=== PATIENT | female | born 1955 | race Caucasian/White ===

== ENCOUNTER → 2024-08-13 12:00 | Outpatient (CLI) | payer MEDICARE, SELFPAY ==
--- NOTE | 2024-08-13 12:09 | EKG_ITS ---
[address] [address] [address], [place] [address] Test Date: 2024-08-13 Pat Name: Terrie De Paz Department: Room: Gender: Female [employer] Instructor: ANAYA : 1955 Requested By: Order Number: [id number] Reading MD: Vasquez Manriquez Measurements Intervals Anthony Rate: 72 P: 9 LA: 134 QRS: 42 QRSD: 84 T: 33 QT: 396 QTc: 433 Interpretive Statements Normal sinus rhythm Electronically Signed On 08-14-2024 19:51:24 PDT by Vasquez Manriquez
[2024-08-13 13:15] LABS: Add Manual Diff / Slide Review NO; Basophils Absolute Auto 100 /uL (0-100); Basophils Percent Auto 0.7 % (0-2); Eosinophils Absolute Auto 300 /uL (0-450); Eosinophils Percent Auto 3.1 % (2-4); Hematocrit 39.3 % (36-46); Hemoglobin 13.7 g/dL (12.0-16.0); Lymphocytes Absolute Auto 2500 /uL (1100-4500); Lymphocytes Percent Auto 28.5 % (25-40); Mean Corpuscular HGB Conc 34.7 % (30-36); Mean Corpuscular Hemoglobin 31.4 PG (26-34); Mean Corpuscular Volume 90.5 fL (80-100); Monocytes Absolute Auto 800 /uL (0-900); Monocytes Percent Auto 8.7 % (3-14); Neutrophils Absolute Auto 5200 /uL (1500-7000); Platelet Count 326 X10^3/uL (150-400); Red Blood Cell Count 4.34 X10^6/uL (4.0-5.2); Red Cell Distribution Width 13.1 % (11.6-14.8); White Blood Cell Count 8.8 X10^3/uL (4.5-11.0)
[2024-08-13 14:17] LABS: Albumin 4.3 g/dL (3.5-5.0); BUN Creatinine Ratio 10.2 (6-22); Blood Urea Nitrogen 5 mg/dL (7-17); Carbon Dioxide 27 mmol/L (22-32); Chloride 98 mmol/L (98-107); Estimated Glomerular Filt Rate > 60 mL/min (>60); Glucose 96 mg/dL (80-110); HEMOLYSIS < 15 (0-50); Potassium 4.1 mmol/L (3.4-5.1); Sodium 134 mmol/L (137-145)
[2024-08-13 14:25] LABS: Prealbumin 22.5 mg/dL (17.6-36.0)
[2024-08-13 17:08] LABS: Vitamin D 25 Hydroxy (D3) 70.3 ng/mL (30.0-100.0)
== END ==
PROVIDERS: Referring Provider Orthopaedic Surgery Adult Reconstructive Orthopaedic Surgery; Visit Provider Orthopaedic Surgery Adult Reconstructive Orthopaedic Surgery
DX: Z01.818 Encounter for other preprocedural examination (principal); R73.9 Hyperglycemia, unspecified; E55.9 Vitamin D deficiency, unspecified; R77.0 Abnormality of albumin; Z01.812 Encounter for preprocedural laboratory examination
CPT/HCPCS: 36415; 80048; 82040; 82306; 83036; 84134; 85025; 93005

== ENCOUNTER 2024-09-03 11:15 | Inpatient (IN) | payer MEDICARE, SELFPAY ==
[2024-09-01 11:38] VITALS: BMI 21.2
[2024-09-03] VITALS (11 sets, daily range): BP systolic 90–121; BP diastolic 42–73; PULSE 66–75; RESP 12–18; TEMP 36.3–36.9; O2SAT 92–99; BMI 21.0
--- NOTE | 2024-09-03 06:00 | DI.RAD.S_ITS ---
PROCEDURE: XR KNEE RT 1TO2V INDICATIONS: post-op TECHNIQUE: 3 views of the knee were acquired. COMPARISON: [facility] EarlyEstevan Bruno, MAGDALENE, XR KNEE 4+ VIEWS RIGHT, 07/21/2024, 9:07. FINDINGS: Bones: Right knee arthroplasty revision changes and placement of medication beads. Soft tissues: Postsurgical changes of the soft tissues. IMPRESSION: Revision of the right knee arthroplasty and placement of medication beads. Postsurgical soft tissue changes. Dictated by: Cricket Bee M.D. on 09/03/2024 at 18:48 Approved by: Cricket Bee M.D. on 09/03/2024 at 18:49
[2024-09-03] MEDS: LACTATED RINGERS 1,000 ML 42 ML IV ×3 (12:36→17:45)
[2024-09-03] MEDS: ACETAMINOPHEN 325 MG TABLET 975 MG PO (12:41)
[2024-09-03] MEDS: MELOXICAM 7.5 MG TABLET 15 MG PO (13:49)
[2024-09-03] MEDS: ONDANSETRON 4 MG/2 ML INJ IV ×2 (13:52→18:54)
[2024-09-03] MEDS: CEFAZOLIN 2 GM/100 ML PREMIX 100 ML IV ×3 (14:06→23:42)
[2024-09-03] MEDS: TRANEXAMIC ACID 1,000 MG VIAL 1000 MG INJ ×2 (14:07→17:35)
--- NOTE | 2024-09-03 14:45 | SUR.OPER ---
Supine on padded OR bed. Pillow under head, arms secured on padded armboards <90 degree abduction. Safety belt across torso. Non-operative leg secured with tape over blanket over lower leg. Operative leg secured in DeMayo/Darion/Nathe positioner. Foam padded brace at thigh of operative leg.
[2024-09-03] MEDS: VANCOMYCIN 1,000 MG VIAL 2000 MG TOP ×3 (15:17→16:48)
[2024-09-03] MEDS: TOBRAMYCIN 1.2 GM VIAL 0.4 GM INTRA-ARTI ×3 (15:19→16:48)
[2024-09-03] MEDS: ROPIVACAINE/EPI/CLONIDINE/KET 50 ML SYRINGE INJ (15:43)
--- NOTE | 2024-09-03 16:26 | SUR.OPER ---
patient wound closed and reprepped and draped at [id number]
[2024-09-03] MEDS: ePHEDrine 50 MG/ML VIAL 10 MG IV (18:39)
[2024-09-03] MEDS: ALBUMIN HUMAN 12.5 GM/250 ML VIAL IV (18:44)
[2024-09-03] MEDS: OXYCODONE IR 5 MG TABLET PO (18:53)
[2024-09-03] MEDS: hydrOXYzine 50 MG/ML INJ 25 MG IM (18:54)
--- NOTE | 2024-09-03 19:20 | P.OP_ITS ---
Operative Date/Time/Diagnoses Date of procedure: 09/03/24 Pre-op diagnosis: Right knee periprosthetic joint infection Post-op diagnosis: same Procedure & Clinicians Procedure: - Explantation right total knee arthroplasty - Implantation of articulating knee spacer in the form of a primary total knee arthroplasty - Placement biodegradable antibiotic delivery device in the form of both calcium sulfate and polymethylmethacrylate Same procedure as scheduled: Yes Surgeon: Virgilio Bolden Control Inspector: Fadia Quintero Anesthesia Type: Spinal, Sedation and Local Operative Notes Estimated Blood Loss (mL): 300 Procedure in detail: Explantation of right total knee arthroplasty with separate setup for implantation of an antibiotic loaded articulating spacer in the form of Sami primary total knee arthroplasty components as well as implantation of biodegradable antibiotic loaded calcium sulfate pellets Implants: * Size 5 posterior stabilized persona Femoral Component with a stem fabricated from cement containing vancomycin and tobramycin and a K-wire * Size 17 all-polyethylene NexGen Tibial Component with a stem fabricated from cement containing vancomycin and tobramycin and a K-wire * Patella resected but no button placed - note that initial thickness was 23 mm * Biodegradable calcium sulfate antibiotic pellets with vancomycin and tobramycin Labs: 7 culture specimens sent for microbiological analysis including culture and PCR Procedure in Detail: This 69-year-old female patient presented to my clinic with a total knee arthroplasty that had been placed in 2018 and had rapidly worsened over the preceding 6 months. Her patella had been left unresurfaced and as of November of this year had no significant degenerative changes. When she saw me in clinic there were severe erosive changes on the patella which had not been present 6 months earlier. Additionally there had been the development erosive changes underneath the tibial base plate which likewise had not been present 6 months earlier. My clinical suspicion for infection was extremely high given the worsening condition of the knee over such a short period of time that long after surgery. Initially aspirated the knee and analyzed it using Synovasure. That returned as a negative result however my clinical suspicion was so high that I repeated the aspiration and this time sent it for a PCR based analysis. That returned with a positive result for Enterococcus faecalis. This aligned with my clinical assessment of the condition of her knee and I therefore had her evaluated by an infectious disease doctor at [facility] and also made plans for a two-stage exchange arthroplasty. I discussed the risks associated with treatment of periprosthetic joint infections with her in detail. There is a mortality rate associated with these infections which has been sided and some literature 25% at 5 years. Additional complications which are pertinent include high risk of acute kidney injury, the risk of infection treatment failure with recurrent infection, the need for additional surgery even if things go as planned, and additional medical complications. The patient understood these risks and wished to proceed. With this understanding of the risks inherent to the procedure, the patient elected to move forward with operative management. Following preoperative optimization, the patient was scheduled for surgery. The patient was met in the preoperative holding area the day of the procedure and all questions were answered. The patient?s nares were swabbed with betadine in order to decolonize them from MRSA. Informed consent was signed and the right limb was marked with indelible ink.? The patient was brought back to the operating room where anesthesia was induced. The patient was transferred to the operating table and all bony prominences were padded. The operative site was prepped and draped in the usual sterile fashion. A second prep stick was utilized following drape placement. The incision was marked corresponding to the medial aspect of the tibial tubercle and the patella. Ioban was wrapped circumferentially around the knee. Prior to incision, tranexamic acid and cefazolin were administered. Templating images were displayed. A timeout procedure was performed verifying the patient?s identity, medical comorbidities, allergies, relevant medications, anesthesia type and the surgical plan. All present were in agreement. The assistance of a physician kindergarten teacher assistant was required for positioning, room setup, soft tissue retraction and wound closure. Without this assistance, the procedure would have been significantly more challenging and time consuming.?? The tourniquet was inflated prior to incision. I made an anterior incision over the knee. She had had a remote ACL reconstruction and had an anterior based incision from that surgery as well as her total knee arthroplasty and I excised both of those scars to allow for a clean skin closure at the conclusion of the procedure. There was adequate skin to allow for this. I dissected down through the subcutaneous tissues and identified the lateral border of the VMO. I made a medial parapatellar arthrotomy and dissected the medial retinaculum and capsule off of the medial aspect of the tibia to allow for maximum external rotation of the foot. Dissected the synovial tissues off of the anterior femur. I inserted an intraosseous needle into the tibial canal and infiltrated 50 mL of dilute vancomycin to utilize backflow in the venous system due to the tourniquet to achieve high vancomycin concentrations in the soft tissues. I then inspected the patella. The patella had been left unresurfaced during the index procedure. I found that the [place] patella had severe erosive changes consistent with osteomyelitis. The picture included below comes from prior to any resection of cartilage from the patella and demonstrates the severe changes that had been caused by her infection. There were large flaps of nonviable cartilage as well as deep pits from the osteomyelitic changes. I used a rongeur to obtain multiple samples from the patella as well as the surrounding tissues. The condition of the patella confirmed my preoperative assessment that this was likely infection as there were severe erosive changes to the cartilage and large areas of what appeared to be infectious debris contained within the bone. I used a caliper to measure the thickness of the patella when I returned for a 2nd stage. The pre resection thickness was 23 mm. I then used a saw to resect all of the patellar cartilage that remained until I got down to a thickness at which I had removed all of the osteomyelitis. It was approximately 16 mm thick at that point in time. I also resected away the synovial tissue surrounding the patella and sent those for culture as well. I then resected the components. I initially used an osteotome to remove the polyethylene insert. I retracted around the edges of the femur and used a micro sagittal saw to open the bone cement interface. I moved across the table while working on the medial side of the knee and repeated the process there until I had used the microsagittal saw to disrupt the bone cement interface around the entirety of the accessible portions of the femoral component. Then passed an osteotome behind the femoral component and used this to free up the implant. I then used a extraction osteotome to mallet the femoral component out of the wound. I noted that there was cement attached to the femoral component consistent with good cement interdigitation indicating that it had not entirely loosened which had been my experience during the extraction process. There was no bone attached to the components that I could discern although the bone behind the femoral component was very soft. I then exposed the tibia using a combination of pickup forks and a Z retractor and used a single sided reciprocating saw to open up the interface between the implant and the bone. I did find that it remained fixed but was able to pass a single sided reciprocating saw all the way around the back of the implant as well as laterally to free up the implant from the bone. I impacted the tibial component out using the extraction osteotome and then resected the cement. There was a significant amount of cement down the tibial canal and during removal of this cement I did note some posterior compartment musculature in the intramedullary canal consistent with having perforated the posterior cortex with 1 of the extraction osteotomes. The cortex was very thin in the cement extended up directly to the cortical interface making it very hard to get all of the cement out without the perforation that did eventually occur. I then moved onto freshening resections and intramedullary debridement. I obtained intramedullary samples from both the femur and the tibia for culture. I reamed up to a size 14 Reamer on the femoral side and a size 13 Reamer on the tibial side. I irrigated down both canals to remove any nonviable bone that had been disrupted by the hand reaming process. I then used distal femoral resection guide and proximal tibial resection guides to make freshening cuts on the femoral and tibial sides. On both sides I aimed to resect approximately 2 mm of bone from the prior resection to maximize bone preservation for the purposes of this spacer. I used a 6 degree cutting block for the femur which engaged with the rigid Reamer and a neutral mechanical alignment resection for the tibia which also engaged with the rigid Reamer. I then moved onto trialing. Based on the sizing of the femoral component I anticipated that a size 5 persona femur would fit appropriately. I put this in place and found that the chamfers anteriorly mismatch slightly so I made a freehand cut to free up some room so that it would fit and confirmed that it did. I then trialed with floating tibias and found that a 17 mm insert achieve the best balance so I planned to use this in an all-polyethylene form. I found that the patella tracked appropriately although it obviously edge loads with no patellar button being in place after having been resected for the purposes of osteomyelitic debridement. I prepped the femoral component by using a lug drill and confirming that no box cut was needed. I prepped the tibial component with a punch and a central housing drill. At this point in time I completed my debridement by removing the gutters. I placed Kochers on the extensor mechanism on both the medial and lateral sides separately and separately resected the gutters extending into the suprapatellar area. I sent both of those gutters for culture. I removed the capsular tissue from the posterior capsule ensuring I did not resect too much given the local neurovascular structures. I then performed a chemical debridement. I soaked the wound in Betadine for 3 minutes. I then copiously irrigated out the wound including down both canals. I then soaked the wound in peroxide for 3 minutes. I then copiously irrigated out the wound including down both canals. I placed a lap in the wound and soaked it with Betadine and whip stitched the wound closed using a single nylon suture. In order to limit bioburden associated with the infected field at this point in time all of the drapes were taken down and all of the instruments were removed from the surgical field. All of the surgical staff broach scrub and re-prepped in new gowns and then re-prepped and draped the entire surgical field. The tourniquet had been let down for this process and was then reinflated. A completely new set of surgical instruments was brought up and there was no utilization of anything from the dirty side on the remainder of the procedure. After we had re-prepped and draped the entire field the wound was again copiously irrigated with Betadine and peroxide and saline. I prepped the cement stems for the spacer by inserting a K-wire into an all polyethylene tibia for the Sami NextGen system and placing that down into the tubing for cement which had been mixed along with vancomycin and tobramycin. Additionally loose cement was rolled into a stem around a K-wire which would later be inserted free into the femoral canal for additional antibiotic infiltration. After these had been allowed to dry and the cement had been removed from inside the cement gun on the tibial component I again trialed with the final components to confirm that they would fit appropriately. I confirmed that trialing parameters were acceptable. I then move forward with cementation utilizing another batch of cement which had likewise been infiltrated with the vancomycin and tobramycin. The bony ends were irrigated and cement was prepared. Cement was not placed onto the undersurface of the tibia or the backside surface of the femoral component so as to allow for easier component removal during her planned second- stage. The loose femoral stem was inserted into the femoral canal. Cement was placed onto the femoral component 1st and it was manually pushed into place. Cement was placed onto the dry tibia and pressurized into the cancellous bone. I inserted the tibial component into place. Cement was removed. The tibia was reduced underneath the femur. Cement was removed from around the femur and the tibia. I brought the knee into extension and ensured that it did not hyperextend while allowing the cement to dry. The knee was bathed in a dilute mixture of betadine and peroxide. A mixture of Ropivacaine, Epinephrine, Clonidine and Toradol was infiltrated throughout the soft tissues into structures including the VMO, patellar tendon, quadriceps tendon, MCL and femoral periosteum. A low adductor canal block was also performed using this mixture unless one had been placed preoperatively by anesthesia. The knee was copiously irrigated with pulse lavage. Once cement had been allowed to dry the knee was again trialed. Range of motion was assessed by ensuring the knee could achieve full extension and assessing maximum passive knee flexion by elevating the femur and allowing the heel to passively fall towards the buttock. Gap symmetry was assessed by stressing the medial and lateral compartments in both extension and flexion. Laxity was assessed in both extension and flexion and the polyethylene trial was adjusted with shims as necessary. Patellar tracking was assessed with knee flexion. I inspected the knee inspected for excess cement and any residual bleeding. At the conclusion of the procedure I noted that she had 1-2 mm of opening with varus and valgus stress in extension, and moderate anterior translation of the tibia on the femur in a position of flexion. She did not hyperextend and she had appropriate patellofemoral tracking. A 5 mL mixture of vancomycin and tobramycin loaded calcium sulfate pellets was placed into the suprapatellar pouch. The arthrotomy was closed with absorbable interrupted suture ensuring that this extended to the top of the arthrotomy. This was backed up with running barbed suture throughout the arthrotomy. The skin was closed with 2-0 and 3-0 sutures. Surgical glue was applied and a soft dressing was placed.?The sponge, instrument and needle counts were reported as being correct at the end of the case.??No obvious complications occurred. The patient was transferred from the operating table back to a stretcher. The patient emerged from anesthesia without difficulty and was taken to the PACU in a stable condition.?I performed a postoperative check in the patient's hospital room where she was noted to have intact plantar flexion and dorsiflexion at her ankle and hallux, a well-perfused foot, a clean Alvin bandage overlying her incision, and appropriate mentation. She did note discomfort in her knee. She had had hypotension immediately postoperatively which improved during her stay in the PACU and was receiving intravenous albumin with stable blood pressures when I evaluated her upstairs on the floor. Plan for aftercare: * Touchdown weight-bearing on the operative extremity with a knee immobilizer. The knee immobilizer is present for soft tissue rest only. It can be removed while she is in bed and she can bend her knee slightly but the knee immobilizer is intended to limit knee flexion to allow the wound to heal, particularly since the calcium sulfate pellets dissolve by osmosis and can cause drainage * If chalky white appearing drainage is noted from the wound at any point in time during the next month it is almost certainly the dissolving calcium sulfate antibiotic pellets and not an indication of rapid recurrence of her infection. She did not have any drainage from the wound prior to this surgery and had had this infection likely for at least 6 months. Should this white appearing drainage occur the patient should be reassured that it is not purulent drainage and though it would complicate wound management it would not mean that her infection had rapidly recurred. * A lidia incisional wound VAC was placed and should remain in place until follow up. The battery will after 1 week at which time the cord can be removed and it can be used as a normal dressing until the follow up appointment in our clinic * Ceftriaxone and vancomycin broad-spectrum antibiotic coverage are to be utilized initially. If no cultures result positive the patient would be sent home on ampicillin per my discussions with her infectious disease doctor * A PICC line we will need to be placed during this admission * I have consulted the hospitalist service here at [facility] for assistance with her medical needs during this admission, particularly focused on her antibiotic regimen given the lack of infectious disease coverage at this hospital. I will interface with her infectious disease doctor at [facility] during her admission as needed * From a medical perspective the patient is only major medical issue is high alcohol intake and the importance of maintaining sobriety will need to be continually emphasized to her. I do not anticipate that she will need any sort of medication for withdrawal as she does not report having had those symptoms in the past however we will need to monitor for it * A nutrition consult would be helpful in ensuring she has adequate nutrition to heal her wound. She has a very slender body habitus and I noted minimal muscular tissue in her operative extremity during today's procedure * Hale catheter was placed prior to the procedure and should remain in place overnight so the patient does not have to ambulate to the bathroom. It can be removed tomorrow morning * Aspirin 81 twice per day for DVT prophylaxis * Multimodal pain regimen with no IV opioids ordered * Anticipate discharge home in approximately 3 days. Patient should remain admitted on my service until cultures result * Follow up at [facility] in 2 weeks * Detailed postoperative instructions available at [email or web address]
[2024-09-03] MEDS: HYDROMORPHONE 1 MG INJ IV (20:28)
[2024-09-03] MEDS: VANCOMYCIN 1,000 MG/200 ML PIGGYBACK 200 MG IV (20:31)
[2024-09-03] MEDS: LACTATED RINGERS 1,000 ML 100 ML IV (20:47)
[2024-09-03] MEDS: ACETAMINOPHEN 325 MG TABLET 650 MG PO (21:02)
[2024-09-03] MEDS: IBUPROFEN 600 MG TABLET PO (21:02)
[2024-09-03] MEDS: DOCUSATE 100 MG CAPSULE PO (21:03)
[2024-09-03] MEDS: ASPIRIN EC 81 MG TABLET PO (21:03)
[2024-09-03] MEDS: cefTRIAXone 1,000 MG in SODIUM CHLORIDE 0.9% 100 ML 200 MG IV (22:00)
[2024-09-04] VITALS (8 sets, daily range): BP systolic 94–121; BP diastolic 46–61; PULSE 71–89; RESP 14–17; TEMP 36.3–37.6; O2SAT 89–95
--- NOTE | 2024-09-04 00:45 | PC.NURSE ---
Pt. admitted from PACU @1900 & admission assessment was done by Laquita JACKSON. Oriented to her room & encourage to call for assistance, call light with in reached. Will continue plan of care & monitor.
[2024-09-04] MEDS: ONDANSETRON 4 MG/2 ML INJ IV (02:23)
[2024-09-04] MEDS: IBUPROFEN 600 MG TABLET PO ×4 (02:29→20:43)
[2024-09-04] MEDS: OXYCODONE IR 10 MG TABLET PO ×8 (02:29→23:30)
[2024-09-04] MEDS: ACETAMINOPHEN 325 MG TABLET 650 MG PO ×4 (02:30→20:43)
[2024-09-04] MEDS: GABAPENTIN 300 MG CAPSULE PO ×2 (03:53→20:37)
[2024-09-04] MEDS: VANCOMYCIN 1,000 MG/200 ML PIGGYBACK 200 MG IV ×3 (04:00→20:37)
[2024-09-04] MEDS: PANTOPRAZOLE DR 20 MG TABLET PO (05:49)
[2024-09-04 06:00] LABS: Hematocrit 22.7 % (36-46); Hemoglobin 7.7 g/dL (12.0-16.0)
--- NOTE | 2024-09-04 07:45 | PM.PNPO.1 ---
Subjective Subjective Date Patient Seen: 09/04/24 Time Patient Seen: 07:45 Interval history: Patient states her pain is mild. Denies shortness of breath or chest pain. No nausea or vomiting. Exam Vital Signs (past 8 hours): - 09/04/24 02:33 09/04/24 06:00 Temperature 99.4 F 98.9 F Pulse Rate 78 71 Respiratory Rate 17 16 Blood Pressure 107/59 L 94/46 L Pulse Oximetry 94 90 L Oxygen Flow Rate 0 0 Oxygen Delivery Method Nasal Cannula Oxygen Flow Rate 0 Narrative Exam Narrative: 61-year-old female resting comfortably in bed in no apparent distress. The knee brace is in place. Dressing is clean, dry and intact. Neurovascular status is intact bilateral lower extremities. Const General: cooperative and comfortable Nutritional Appearance: average body habitus Orientation: alert Resp Effort & Inspection: normal respiratory effort and able to speak in complete sentences Objective Labs 09/04/24 05:25 Labs: Laboratory Results - last 24 hr 09/04/24 05:25 Hgb 7.7 L Hct 22.7 L PFSH Medical History (Updated 09/02/24 @ 14:35 by Crista Hobson RN) Biceps tendonosis of right shoulder Palpitations Asymptomatic PVD (peripheral vascular disease) Hypercholesteremia Dysthymic disorder Chronic pain Alcohol dependence, uncomplicated Panic attacks Anxiety GERD (gastroesophageal reflux disease) HTN (hypertension) Surgical History (Updated 09/02/24 @ 14:35 by Crista Hobson RN) History of total right knee replacement (TKR) H/O tubal ligation H/O thumb surgery S/P left rotator cuff repair S/P right rotator cuff repair Social History household members: significant other Smoking Status: Former smoker alcohol intake: former Assessment & Plan Post-op Postoperative Procedures: Procedures Operation Date: 09/03/24 13:30 Actual Procedure Side Surgeon p Total Knee Arthroplasty Revision Right Virgilio Bolden MD Postoperative day: 1 Postoperative status narrative: Anemia, acute blood loss anemia secondary to surgery Postoperative plan narrative: Anemia ordered 1 unit of packed red blood cells to be given this morning, repeat H&H tomorrow morning Toe-touch weight-bearing on operative extremity with knee immobilizer, knee immobilizer is present for soft tissue rest only, immobilizer may be removed while she is in bed and she can bend her knee slightly but the knee immobilizer is attended to limit flexion to allow the wound to heal Lidia dressing, keep dressing clean and dry lidia dressing should remain in place until follow up appointment outpatient orthopedic clinic in 2 weeks Ceftriaxone and vancomycin antibiotic coverage utilize initially if no culture results positive the patient will be sent home on ampicillin per Infectious Disease DrTrenton PICC line will need to be placed prior to discharge Hospitalist has been consulted appreciate their recommendations on this complex patient Hale catheter will be removed once mobilizing Aspirin 81 mg b.i.d.For DVT prophylaxis Multimodal pain management avoid IV opiates Anticipate discharge home in approximately 3 days, waiting for final cultures
[2024-09-04] MEDS: ASPIRIN EC 81 MG TABLET PO ×2 (08:40→20:37)
[2024-09-04] MEDS: DOCUSATE 100 MG CAPSULE PO ×2 (08:40→20:37)
[2024-09-04] MEDS: DULOXETINE 30 MG CAPSULE PO (08:41)
[2024-09-04] MEDS: CEFAZOLIN 2 GM/100 ML PREMIX 100 ML IV (08:41)
--- NOTE | 2024-09-04 09:31 | DI.RAD.S_ITS ---
PROCEDURE: XR CHEST FOR PICC 1V INDICATIONS: line placement TECHNIQUE: One view of the chest was acquired. COMPARISON: None. FINDINGS: Surgical changes and devices: PICC line with guidewire in place from left-sided approach crosses the midline and enters the azygos arch area of the superior vena cava. Lungs and pleura: Lungs are clear. No pleural effusions or pneumothorax. Mediastinum: Mediastinal contours appear normal. Heart size is normal. Bones and chest wall: No suspicious bony lesions. Overlying soft tissues appear unremarkable. IMPRESSION: Left-sided approach PICC line enters the superior vena cava as discussed. Dictated by: Bassam Ramos M.D. on 09/04/2024 at 10:04 Approved by: Bassam Ramos M.D. on 09/04/2024 at 10:05
--- NOTE | 2024-09-04 10:29 | OT.IP.EVAL ---
Current Diagnoses Broken internal right knee prosthesis, initial encounter (09/03/24) Surgery Performed Operation Date: 09/03/24 13:30 Actual Procedures p Total Knee Arthroplasty Revision(Right) - Virgilio Bolden MD Past Medical History (Last Updated 09/02/24 @ 14:35 by Crista Hobson, RN) Alcohol dependence, uncomplicated Anxiety Asymptomatic PVD (peripheral vascular disease) Biceps tendonosis of right shoulder Chronic pain Dysthymic disorder GERD (gastroesophageal reflux disease) HTN (hypertension) Hypercholesteremia Palpitations Panic attacks Surgical History (Last Updated 09/02/24 @ 14:35 by Crista Hobson, RN) H/O thumb surgery H/O tubal ligation History of total right knee replacement (TKR) S/P left rotator cuff repair S/P right rotator cuff repair Occupational Therapy Inpatient Evaluation/Re-Eval M1 PT/OT-IP Prior Functional Status Start: 09/04/24 07:21 Freq: NEEDED Status: Active Protocol: Document 09/04/24 09:55 MB (Rec: 09/04/24 10:36 MB [id number]) Medical Review Prior Functional Status Medical History Reviewed Yes Diet/Fluid Consistency Regular Communication WNLs Mobility and Gait I, wore a knee brace on right leg but did not use AD Activities of Daily Living and IADL's I, has five horses, lives with significant other Social History Household Members significant other Living Arrangements House Number of Floors (Floors) One Floor Number of Stairs To Enter/Railing? 4 steps B rails to enter home and 1 step down once inside house Home Environment Standard Height Toilet,Tub/ Shower Additional Social History Comment Pt reports she has her significant other's old rolling walker and she might need a new one as she does not know how old it is M1 PT/OT-IP Prior Functional Status Start: 09/04/24 10:29 Freq: NEEDED Status: Active Protocol: Document 09/04/24 10:30 [facility] (Rec: 09/04/24 10:50 [facility] [id number]) Medical Review Prior Functional Status Communication Independent Mobility and Gait Independent with no devices but had pain. Activities of Daily Living and IADL's Independent but had pain during ADL,IADL, and taking care of her horses. Social History Household Members significant other Living Arrangements House Number of Floors (Floors) One Floor Number of Stairs To Enter/Railing? 4 step with bilateral rails and one step down after getting in. Home Environment Standard Height Toilet,Tub/ Shower Home Equipment Front Wheel Walker Additional Social History Comment Pt states her significant other to install grab bars in the bathroom. Pt has crutches. 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 Pt states very tired. Patient/Caregiver Goals TO go home. OT Pain Assessment Pain When Pain Assessed During Mobility Pain Present Pain Present Pain Reported Location right knee Intensity 3 Scale Used Numeric (0 - 10) M4 OT- IP ADL's Start: 09/04/24 10:29 Freq: Status: Active Protocol: Document 09/04/24 10:30 [facility] (Rec: 09/04/24 10:50 [facility] [id number]) OT [id number] Comments OT Self-Feeding Comments Pt will need set-up due to arthritis in her hands. OT ADL-Grooming General Evaluation Areas Needing Assistance Retrieving/Set-up of Grooming Items Comments OT Grooming Comments Set-up while seated on the recliner. OT ADL-Oral Care General Eval Oral Care Ability Independent OT ADL-Dressing General Eval Lower Body Dressing Ability Maximum Assistance Comments OT Dressing Comments At this time pt will need assist for LB dressing and knee immobilizer. To practice LB dressing needs and pt aware may benefit from LB dressing equipment. OT ADL-Toileting General Evaluation Toileting Ability Total Assistance Areas Needing Assistance Empty Catheter or Colostomy Comments OT Toileting Comments Hale in place. Pt will benefit from a BSC. OT ADL-Bathing Comments OT Bathing Comments Pt will benefit from a tub bench. M5 OT- IP IADL's Start: 09/04/24 10:29 Freq: Status: Active Protocol: Document 09/04/24 10:30 [facility] (Rec: 09/04/24 10:50 [facility] [id number]) OT-Instrumental Activities of Daily Living Deficits IADL Deficits Identified Deficits Home Safety Awareness Awareness of Need for Assistance at Home Good Awareness Ability to Problem Solve Emergency Able to Problem Solve Situations Meal Preparation Meal Preparation Caregiver Provides Assist Air Tank Assembler Air Tank Assembler Caregiver Provides Assist M6 OT- IP Functional Cognition Start: 09/04/24 10:29 Freq: Status: Active Protocol: Document 09/04/24 10:30 [facility] (Rec: 09/04/24 10:50 [facility] [id number]) Cognitive Factors Limiting Selfcare Function Cognitive Ability Level of Alertness Alert Patient Orientation Name,Age,Birthday,Month,Date, Year,Day of Week,Place, Situation Attention Span Ability Capable of Focused Attention, Capable of Sustained Attention Ability to Follow Commands Able to Follow One Step Commands Memory Description No Deficits Noted Safety Awareness No Deficits Noted Cognitive Comments Cognitive Assessment Comments Intact OT- Vision and Hearing OT- Hearing Assessment OT- Hearing Assessment WFL OT- Vision Assessment Visual Acuity Glasses For Reading Visual Attentiveness WFL Occular Pursuits WFL M7 OT- IP Mobility and Balance Start: 09/04/24 10:29 Freq: Status: Active Protocol: Document 09/04/24 10:30 [facility] (Rec: 09/04/24 10:50 [facility] [id number]) OT- Bed Mobility Assessment Supine to Sit Supine to Sit Assist Standby Assistance Sit to Supine Sit to Supine Assist Contact Guard Assistance OT-Transfer Assessment Sit to and From Stand Sit to and from Stand Contact Guard Assistance Transfers Transfer Ability Minimal Assistance,1 Person Assistance Technique Transfer Destination Bed,Chair Transfer Technique Stand Step Pivot Devices Transfer Assistive Devices Gait Belt,Front Wheeled Walker Comments Mobility Comments CGA to assist RLE back into bed. CGA to stand and HERIBERTO with FWW and pt able to safely follow the TDWB for RLE. Pt will benefit from a wc possibly motorized for longer distances, especially due to bilateral shoulder weakness and pain. OT- Balance Assessment Sitting Balance and Reactions Static Sitting Balance Ability Good Dynamic Sitting Balance Ability Good Standing Balance and Reactions Static Standing Balance Ability Good Dynamic Standing Balance Ability Fair M8 OT- IP Objective Assessments Start: 09/04/24 10:29 Freq: Status: Active Protocol: Document 09/04/24 10:30 [facility] (Rec: 09/04/24 10:50 [facility] [id number]) OT Gross Range of Motion Upper Extremity Range of Motion Assessment Bilaterally Impaired ROM Impairments Pt has history of rotator cuff repairs and arthritis in her shoulders which limits end AROM R> L OT Strength Upper Extremity Strength Assessment Bilaterally Impaired OT- Coordination Assessment Comments Coordination Comments Arthritic changes in her hands . M9 OT- IP Assessment and Plan Start: 09/04/24 10:29 Freq: Status: Active Protocol: Document 09/04/24 10:30 [facility] (Rec: 09/04/24 10:50 [facility] [id number]) OT Summary Assessment and Plan Potential Rehabilitation Potential Excellent Analytic Complexity at Evaluation Low Summary OT Impairments Pain,Balance,Functional Mobility,Grooming,Dressing, Toileting,Bathing,Toilet Transfers,Shower Transfers, Activity Tolerance Progress Towards Goals Progressing Toward Goals Assessment Summary Pt low complexity and main barriers are steps, pain, and will benefit from getting ADL equipment and FWW. Pt has a supportive SO to assist with her needs at home. Pt to go home with assist. Pt considering obtaining a FWW from the hospital but wanting to talk to her SO first. Goals Self-Feeding Goal Independent Grooming Goal Independent Dressing Goal Minimal Assistance Toileting Goal Independent Bathing Goal Minimal Assistance Toilet Transfer Goal Independent Shower Transfer Goal Contact Guard Assistance Days to Meet Goals 7 Frequency of Treatment Other frequency 5x/week Treatment Plan OT Treatment Plan ADL Training,Functional Mobility,Patient/Family Education,Discharge Planning Other Treatment Recommendations and Next LB dressing needs. Treatment Focus Discharge Recommendations OT Discharge Recommendations Home with 18/06 Assist Available Home Equipment Needs BSC, FWW, WC, tub bench, LB dressing equipment Transportation Needs at Discharge Private Vehicle
--- NOTE | 2024-09-04 10:37 | PT.IIE ---
Current Diagnoses Broken internal right knee prosthesis, initial encounter (09/03/24) Surgery Performed Operation Date: 09/03/24 13:30 Actual Procedures p Total Knee Arthroplasty Revision(Right) - Virgilio Bolden MD Surgical History (Last Updated 09/02/24 @ 14:35 by Crista Hobson, RN) H/O thumb surgery H/O tubal ligation History of total right knee replacement (TKR) S/P left rotator cuff repair S/P right rotator cuff repair Medical History (Last Updated 09/02/24 @ 14:35 by Crista Hobson, RN) Alcohol dependence, uncomplicated Anxiety Asymptomatic PVD (peripheral vascular disease) Biceps tendonosis of right shoulder Chronic pain Dysthymic disorder GERD (gastroesophageal reflux disease) HTN (hypertension) Hypercholesteremia Palpitations Panic attacks Physical Therapy Inpatient Evaluation/Re-Eval M1 PT/OT-IP Prior Functional Status Start: 09/04/24 07:21 Freq: NEEDED Status: Active Protocol: Document 09/04/24 09:55 [facility] (Rec: 09/04/24 10:36 MB [id number]) Medical Review Prior Functional Status Medical History Reviewed Yes Diet/Fluid Consistency Regular Communication WNLs Mobility and Gait I, wore a knee brace on right leg but did not use AD Activities of Daily Living and IADL's I, has five horses, lives with significant other Social History Household Members significant other Living Arrangements House Number of Floors (Floors) One Floor Number of Stairs To Enter/Railing? 4 steps B rails to enter home and 1 step down once inside house Home Environment Standard Height Toilet,Tub/ Shower Additional Social History Comment Pt reports she has her significant other's old rolling walker and she might need a new one as she does not know how old it is M2 PT-IP Current Condition Start: 09/04/24 07:21 Freq: NEEDED Status: Active Protocol: Document 09/04/24 09:55 [facility] (Rec: 09/04/24 10:36 MB [id number]) Physical Therapy Current Condition Current Condition Evaluation Date 09/04/24 Treatment Diagnosis R total knee revision, knee immobilizer, TDWB RLE M3 PT-IP Subjective Start: 09/04/24 07:21 Freq: NEEDED Status: Active Protocol: Document 09/04/24 09:55 MB (Rec: 10/10/24 10:36 MB [id number]) Subjective Physical Therapy Visit Type Type Initial Evaluation Visit Start Time 09:55 Visit Stop Time 10:13 Number of FENDER MECHANIC APPRENTICE Visits 0 Physical Therapy Visit Comments Patient Comments Pt states she wants to sleep but she is agreeable to therapy. Therapy Pain Assessment Pain When Pain Assessed At Rest Pain Present Pain Present Denied Pain M4 PT-IP Mobility and Gait Start: 09/04/24 07:21 Freq: NEEDED Status: Active Protocol: Document 09/04/24 09:55 [facility] (Rec: 09/04/24 10:36 MB [id number]) PT-Bed Mobility Assessment Supine to Sit Supine to Sit Standby Assistance Scooting Scooting to Edge of Bed Standby Assistance Scooting Up and Down in Bed Standby Assistance PT-Transfer Assessment Sit to and From Stand Sit to and from Stand Contact Guard Assistance Equipment Transfer Assistive Device Gait Belt,Front Wheeled Walker Orthotic/Prosthetic Devices or Brace: No Transfers Transfer Destination Chair Transfer Technique Step-to ambulation Transfer Ability Level of Assist Contact Guard Assistance,1 Person Assistance,Use of Upper Extremities Comments Mobility Comments Cues for hand placement and PT demos how to touch down right toes for transfer Gait Assessment Gait Gait Assistance Required: Minimum Assistance Distance (Feet) 5 Able to Maintain Weight Bearing Status Yes During Gait Assistive Devices Assistive Device Gait Belt,Front Wheeled Walker Orthotic/Prosthetic Devices or Brace: Yes Gait Deviations General Gait Pattern Antalgic,Decreased Stride Length,Decreased Feet Clearance,Flexed Trunk,Step-to Gait Factors Limiting Gait Function Factors Limiting Gait Function Decreased Activity Tolerance, Decreased Strength, Incoordination,Limited Range of Motion,Pain,Poor Balance, Poor Safety Awareness Comments Gait Comments Initiated step-to training forward and backwards with walker first and then TDWB R foot and then left foot forward and reverse for retropulsion. Also performed turning with walker. Occ assist to move walker and ongoing verbal cues for stepping. PT-Balance Assessment Sitting Balance and Reactions Static Sitting Balance Ability Good Dynamic Sitting Balance Ability Good Standing Balance and Reactions Static Standing Balance Ability Good Dynamic Standing Balance Ability Fair Device Used RW M5 PT-IP Objective Assessments Start: 09/04/24 07:21 Freq: NEEDED Status: Active Protocol: Document 09/04/24 09:55 MB (Rec: 09/04/24 10:36 MB [id number]) Orientation Orientation/Cognition Level of Alertness Alert Language Function Ability No Deficits Noted Safety Awareness Decreased Safety Awareness Memory Description No Deficits Noted Gross Range of Motion Upper Extremity ROM Impairments Defer to OT Lower Extremity ROM Assessment Right Impaired Impairments R knee in immobilizer, ankle is functional and hip not tested d/t immobilizer/recent surgery Strength Lower Extremity Strength Assessment Right Impaired Hip R hip NT Knee R knee NT Ankle Right ankle DF and great toe extension 4+/5 Coordination Assessment Gross Coordination Gross Coordination Impaired Sensation Assessment Comments Sensation Comments No sensory testing RLE d/t immobilizer and dressing Muscle Tone Muscle Tone WNL Yes M6 PT-IP Treatment Start: 09/04/24 07:21 Freq: NEEDED Status: Active Protocol: Document 09/04/24 09:55 MB (Rec: 09/04/24 10:36 MB [id number]) Physical Therapy Treatment Exercises Exercises Ankle Pumps Education Education Provided Precautions,Weight Bearing Status,Safety M7 PT-IP Assessment and Plan Start: 09/04/24 07:21 Freq: NEEDED Status: Active Protocol: Document 09/04/24 09:55 MB (Rec: 09/04/24 10:36 MB [id number]) PT Summary Assessment and Plan Potential Rehabilitation Potential Good Status of Condition at Evaluation Evolving Summary Impairments Pain,ROM,Strength,Balance, Coordination,Bed Mobility, Transfers,Gait,Activity Tolerance Assessment Summary Pt is a 69 y/o female presenting POD 1 right total knee revision. Her first TKR was in 2018 and she does not have her own walker available at home. She is I at baseline and has horses. She is TDWB in the knee immobilizer and per orders, is allowed to doff in bed and have slight knee flexion but should protect incision. Pt requires SBA for bed mobility, CGA for transfers, and min A and cueing with RW for step-to gait today. Her HGB is 7.7 and BP in left forearm is 139/64, 87 in supine and orthostatics not checked d/t new LUE PICC and active IV right arm. Her O2 sats are lowish on RA at 88 % in supine and increasing to 92% with cued pursed-lip breathing. Currently, home vs SNF pending progression with mobility. Goals Bed Mobility Goal Independent Transfer Goal Independent,Front Wheeled Walker Gait Goal Independent,Front Wheel Walker Gait Distance 75 Other Goals Pt will ascend and descend 4 steps with two rails and no more than CGA to allow safe home entry. Pt will ascend and descend 1 platform step with RW and no more than CGA to allow safe home mobility inside house. Days to Meet Goals 5 Frequency of Treatment Frequency Of Treatment Twice a Day Treatment Plan Physical Therapy Treatment Plan Bed Mobility Training,Transfer Training,Gait Training, Therapeutic Exercise,Balance Retraining,Post Op Education, Discharge Planning,Hot or Cold Pack,Neuromuscular Re-ed, Coordination Retraining,Manual Therapy Precautions Other Precautions Right knee immobilizer for activity, may doff immobilizer and trace flexion in bed, if questions, refer to Dr. Bolden Weight Bearing Status Weight Bearing Status Touch Down Weight Bearing Allowed Weight Bearing Amount (enter % RLE in knee immobilizer or #) (%) Recommendations To Nursing Amount of Assist Needed 1 Person Assist Discharge Recommendations PT Discharge Recommendations Home vs SNF Other Discharge Recommendations Tub bench and BSC Equipment Needed for Home Before If d/c home, will need RW Discharge issue Transportation Needs at Discharge Private Vehicle
[2024-09-04 12:23] LABS: Estimated Glomerular Filt Rate > 60 mL/min (>60)
--- NOTE | 2024-09-04 13:22 | PT-IP ANOTE ---
PT checks back on pt who is sleeping and receiving blood. Con't PT efforts at another time.
--- NOTE | 2024-09-04 14:45 | DIET.CONS ---
Dietary Consultation Note Admission Date: 09/03/2024 11:15 Assessment: 69 y F admitted s/p from total knee arthroplasty revision. Nutrition consulted for - optimize calorie and protein intake for wound healing. Met w/ pt at bedside, has appetite, ate some of lunch and the fruit at breakfast. No changes in appetite before admission. Notes she recently stopped drinking wine at dinner (as of Jul), eating more, and has gained weight. 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 Discussed easy options to meet needs. Diet recall: b-eggs, hashbrowns, pulido l-smoothie w/ vegs and fruit s-nuts and seeds d-chicken, potatoes Ht: 162.56 cm Wt: 55.6 kg BMI: 21.0 UBW: 54.54 kg per pt. Notes she had higher weight at doctor's office d/t clothes and items. Last BM: 09/03/24 (09/03/24 20:00) MNA: Janusz Score: 20 Diet: 09/04/24 Breakfast General (Regular) Diet Diet Modifications: Food Texture: Level 7 - Regular Liquid Consistency: Level 0 - Thin Labs: Hgb 7.7 g/dL (12.0-16.0) L 09/04/24 05:25 Hct 22.7 % (36-46) L 09/04/24 05:25 Creatinine 0.53 mg/dL (0.52-1.04) 09/04/24 05:25 Nutrition Diagnosis: Increased nutrient needs r/t healing aeb wound Interventions: -Reviewed options on menu, reviewed protein sources, discussed and encouraged optimal energy-protein intake for healing EER: [id number] kcals (25-30 kcals/kg) 55-70 g protein (1-1.2 g/kg per age and wound) Monitoring/Evaluations: po intakes Electronically Signed by: Genesis Hobson 09/04/24 14:45 Clinical Dietitian [address] [id number]
--- NOTE | 2024-09-04 14:49 | P.CONS_ITS ---
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 The patient will be on IV ampicillin for 6 weeks. She underwent a explantation of a right total knee arthroplasty on September 03. She would implantation of an articulated knee spacer as well as placement of biodegradable antibiotic delivery device. She was seen on POD 1. She was doing well. She has been able to ambulate with her walker. Coordination of care with Infectious Disease at [facility] has led to a preliminary plan of ampicillin q.6 hours for 6 weeks as noted above. She denies any abdominal pain, nausea, or vomiting. No diarrhea. She denies any anxiety, chest pain or dyspnea. Meds Home Medications and Allergies Home Medications Medication Instructions Recorded Confirmed Type amlodipine 5 mg tablet 5 mg PO BID 09/01/24 09/03/24 History duloxetine 30 mg capsule,delayed 30 mg PO DAILY 09/01/24 09/03/24 History release fluticasone propionate 50 1 - 2 spray intranasal DAILY PRN 09/01/24 09/03/24 History mcg/actuation nasal allergies spray,suspension gabapentin 300 mg capsule 300 mg PO TID PRN Pain (Scale 09/01/24 09/03/24 History Score 4-6) lorazepam 1 mg tablet 1 mg PO DAILY PRN Anxiety 09/01/24 09/03/24 History losartan 50 mg tablet 50 mg PO BID 09/01/24 09/03/24 History metoprolol succinate 50 mg 50 mg PO DAILY 09/01/24 09/03/24 History tablet,extended release 24 hr naltrexone 50 mg tablet 25 mg PO BEDTIME 09/01/24 09/03/24 History ondansetron 4 mg disintegrating 4 mg PO Q8H PRN Nausea 09/01/24 09/01/24 History tablet acetaminophen 325 mg tablet 325 mg PO DAILY PRN Pain (Scale 09/02/24 09/03/24 History (Tylenol) Score 4-6) ibuprofen 200 mg tablet 200 mg PO DAILY 09/02/24 09/03/24 History omeprazole 20 mg capsule,delayed 20 mg PO DAILY 09/02/24 09/03/24 History release Allergies Allergy/AdvReac Type Severity Reaction Status Date / Time lisinopril AdvReac Cough Verified 09/03/24 12:10 morphine AdvReac Vomiting Verified 09/03/24 12:10 nabumetone AdvReac unsure Verified 09/03/24 12:10 Review of Systems Review of Systems Narrative: All else reviewed and otherwise unremarkable except as noted in the history and physical. Exam Vital Signs (past 8 hours): - 09/04/24 07:00 09/04/24 11:13 09/04/24 11:34 Temperature 99.0 F 99.3 F Pulse Rate 84 76 72 Respiratory Rate 16 16 Blood Pressure 105/61 114/52 L 106/56 L Pulse Oximetry 95 Oxygen Flow Rate 0 09/04/24 11:35 09/04/24 13:55 Temperature 97.4 F L 99.7 F H Pulse Rate 80 89 Respiratory Rate 16 16 Blood Pressure 121/55 L Pulse Oximetry Oxygen Flow Rate Oxygen Delivery Method Nasal Cannula Oxygen Flow Rate 0 Narrative Exam Narrative: NAD, alert and oriented, fluent speech, calm. Normocephalic skull, EOMI, anicteric sclera, symmetric pupils. Oropharynx unremarkable, no droop. Neck supple, midline trachea, no adenopathy. Lungs clear, normal rate and effort. Heart regular, no murmur gallop or rub. Abdomen is soft, non distended and non tender. Extremities are free of edema. Skin is free of rash or lesions. Joints are not swollen or deformed. Judgment appears to be normal. Right knee is wrapped. No pedal edema. Good peripheral pulses. Objective Labs 09/04/24 05:25 09/04/24 05:25 Labs: Laboratory Results - last 24 hr 09/04/24 09/04/24 05:25 08:25 Hgb 7.7 L Hct 22.7 L Creatinine 0.53 Estimated GFR > 60 Blood Type O Positive Antibody Screen Negative Crossmatch See Detail [facility] Medical History Biceps tendonosis of right shoulder Palpitations Asymptomatic PVD (peripheral vascular disease) Hypercholesteremia Dysthymic disorder Chronic pain Alcohol dependence, uncomplicated Panic attacks Anxiety GERD (gastroesophageal reflux disease) HTN (hypertension) Surgical History History of total right knee replacement (TKR) H/O tubal ligation H/O thumb surgery S/P left rotator cuff repair S/P right rotator cuff repair Social History marital status: unmarried,living together household members: significant other Tobacco & Substance Use Smoking Status: Former smoker alcohol intake: former Assessment & Plan Assessment & Plan narrative: 1. Infected knee replacement status post explantation, present on admission and active. 2. Hypertension, present on admission and stable. 3. PVD, present on admission and stable. 4. GERD, present on admission and stable. 5. Acute blood loss anemia, present on admission and active. Plan: -continue routine medications, monitor blood pressure. -monitor hemoglobin, blood products replacement based on standard threshold. Time-Based Coding :: 30 min spent with patient and on the chart (including review of chart, obtaining history, exam, reviewing outside data, placing orders, documenting exam and treatment plan, and counseling patient) on 09/04.
--- NOTE | 2024-09-04 16:23 | CM.DANOTE ---
DCP Assessment Note: Pt is a 69yo female, resident of [place], is admitted for R revision TKA. Pt lives in a house with her significant other, Hernandez. Pt's Primary Care Provider is I[facility] Milner and insurance is [facility] Medicare. Reviewed chart and team rounds for pt's medical status and initial discharge needs. DCP met w/patient at bedside; introduced self and role. Present in the room is pt's significant other, Hernandez Bangura. Patient was found in bed, alert and oriented, cooperative with assessment. Pt confirmed living situation and good support in significant other. Pt expressed preference in returning home and no previous hx with HH agency or SNF Rehab. Pt understanding plans of home health and home infusions pending final abx orders. DCP reviewed Medicare Choice list with patient, patient to review and identify agency preference by next day. Plan: Anticipating discharge home with significant other when medically stable, pending final IV abx orders and home health agency preference. CM team will follow closely for coordination of discharge plans. PRITI Muniz Discharge Planning/Care Management CM Discharge Assessment Start: 09/04/24 16:20 Freq: Status: Active Protocol: Document 09/04/24 16:20 MW (Rec: 09/04/24 16:22 MW [id number]) Discharge Planning Assessment Assigned Ground [employer] MAIRA Brambila DPMUKUND/Assigned Designee Name Hernandez Bangura, Significant Other Contact Information [phone] Advance Directives? No History Provided By Patient,Significant Other, Medical Record Prior Living Arrangements House Household Members significant other Type of transporation used prior to Drives own vehicle admit Independent with ADL's Yes Caregiver for Another No DME Already Rented / Owned FWW / Walker,Cane Patient/Family Preference Home with Home Health Comment Pending home health preference and home infusion orders. Barriers to Discharge No Discharge Plan Drug Rehabilitation Community [facility] Home Health Aid,Home Health Nurse,IV Therapy Referrals Initiated Home Health,Other Additional Comment Home infusion, pending IV abx orders Medicare Choice List Provided Yes Medicare choice list reviewed on patient,family electronic tablet with Whiteboard Updated in Patient Room with No name and ext. # of Ground [employer] Review Status In Process Please Provide Date Initial DC 09/04/24 Assessment Was Performed Next Review Type Continued Stay Review
--- NOTE | 2024-09-04 16:41 | CM.DPNOTE ---
Addendum entered by MAIRA Shannon 09/04/24 16:44: Per PT Megan, pt will need rolling walker for home use. CM team will place those orders day of discharge. JENISE Original Note: DCP note DOORS PREFITTER reviewed EMR. MAIRA Brambila kindly agreed to assist this DOORS PREFITTER due to heavy caseload demands. See her note for more. Per ortho PA note, anticipate needing 6 weeks iv ampicillin 2g Q6 for [address] Ramírez [facility] ID following. PICC placed this morning. DOORS PREFITTER spoke with Jenny from [facility]. Report there likely will be an out of pocket cost, will run numbers now. CC Aaliyah kindly agreed to send FS, H&P, PICC report, and culture report to [facility]. Plan: Anticipating discharge home with significant other when medically stable, pending final IV abx orders and home health agency preference. CM team will follow closely for coordination of discharge plans. MAIRA Shannon
[2024-09-04] MEDS: ONDANSETRON 4 MG ODT PO (20:51)
[2024-09-04] MEDS: cefTRIAXone 1,000 MG in SODIUM CHLORIDE 0.9% 100 ML 200 MG IV (22:07)
[2024-09-05] MEDS: ACETAMINOPHEN 325 MG TABLET 650 MG PO ×4 (02:51→20:15)
[2024-09-05] MEDS: IBUPROFEN 600 MG TABLET PO ×4 (02:51→20:30)
[2024-09-05] MEDS: OXYCODONE IR 10 MG TABLET PO ×6 (03:49→21:33)
[2024-09-05 04:20] LABS: Vancomycin Trough 17.2 ug/mL (10-20)
[2024-09-05] MEDS: VANCOMYCIN TROUGH 1 REQUEST MISC (04:40)
[2024-09-05] MEDS: VANCOMYCIN 1,000 MG/200 ML PIGGYBACK 200 MG IV ×2 (05:50→14:45)
[2024-09-05] MEDS: PANTOPRAZOLE DR 20 MG TABLET PO (05:58)
[2024-09-05 08:00] VITALS: BP 136/68; PULSE 83; RESP 15; TEMP 37.2; O2SAT 92
[2024-09-05] MEDS: GABAPENTIN 300 MG CAPSULE PO ×2 (08:16→21:34)
[2024-09-05 08:26] VITALS: BP 136/69; PULSE 83
[2024-09-05] MEDS: DULOXETINE 30 MG CAPSULE PO (08:26)
[2024-09-05] MEDS: DOCUSATE 100 MG CAPSULE PO ×2 (08:26→21:34)
[2024-09-05] MEDS: METOPROLOL ER 50 MG TABLET PO (08:26)
[2024-09-05] MEDS: ASPIRIN EC 81 MG TABLET PO ×2 (08:26→21:34)
[2024-09-05 08:47] LABS: Vancomycin Peak 27.1 ug/mL (20-40)
[2024-09-05 09:00] VITALS: PULSE 83
[2024-09-05] MEDS: VANCOMYCIN PEAK 1 REQUEST MISC (10:23)
--- NOTE | 2024-09-05 10:29 | P.PN_ITS ---
Subjective Subjective Interval history: Terrie is a pleasant 69 year old female who is POD#2 s/p exploration right total knee, implantation of articulating knee spacer in the form of a primary total knee arthroplasty, placement biodegradable antibiotic delivery device in the form of both calcium sulfate and polymethylmethacrylate by Dr. Bolden. This morning patient reports she is having severe right knee pain. She states she is very tired, she has not worked w/ PT yet today d/t this. She does have her PICC line in place and is receiving IV vancomycin and ceftriaxone. Intra-op culture specimens w/ no preliminary growth so far. Denies fever, chills, chest pain, SOB, nausea, vomiting. Exam Vital Signs (past 8 hours): - 09/05/24 08:00 09/05/24 08:26 09/05/24 09:00 Temperature 99.0 F Pulse Rate 83 83 83 Respiratory Rate 15 Blood Pressure 136/68 136/69 Pulse Oximetry 92 Oxygen Flow Rate 0 Oxygen Delivery Method Nasal Cannula Oxygen Flow Rate 0 Narrative Exam Narrative: Patient lying in bed during our interview today. No acute distress. AOx3. RLE immobilized in knee immobilizer brace. 5/5 strength with DF, PF, EHL bilaterally. Gross sensation intact throughout bilateral lower extremities. Calves soft and non-tender bilaterally. SCDs is on and functioning on the left leg. Brisk capillary refill, pulses intact. Post-surgical dressing dressing clean, dry and intact over the right knee without drainage. Objective Labs 09/04/24 05:25 09/04/24 05:25 Labs: Laboratory Results - last 24 hr 09/04/24 09/04/24 09/05/24 05:25 08:25 03:50 Creatinine 0.53 Estimated GFR > 60 Vancomycin Peak Vancomycin Trough 17.2 Blood Type O Positive Antibody Screen Negative Crossmatch See Detail 09/05/24 08:10 Creatinine Estimated GFR Vancomycin Peak 27.1 Vancomycin Trough Blood Type Antibody Screen Crossmatch [facility] Medical History Biceps tendonosis of right shoulder Palpitations Asymptomatic PVD (peripheral vascular disease) Hypercholesteremia Dysthymic disorder Chronic pain Alcohol dependence, uncomplicated Panic attacks Anxiety GERD (gastroesophageal reflux disease) HTN (hypertension) Surgical History History of total right knee replacement (TKR) H/O tubal ligation H/O thumb surgery S/P left rotator cuff repair S/P right rotator cuff repair Social History marital status: unmarried,living together household members: significant other Smoking Status: Former smoker alcohol intake: former Assessment & Plan Post-op Postoperative Procedures: Procedures Operation Date: 09/03/24 13:30 Actual Procedure Side Surgeon p Total Knee Arthroplasty Revision Right Virgilio Bolden MD Postoperative plan narrative: 1) Touchdown weight-bearing on the operative extremity with a knee immobilizer. The knee immobilizer is present for soft tissue rest only. It can be removed while she is in bed and she can bend her knee slightly but the knee immobilizer is intended to limit knee flexion to allow the wound to heal, particularly since the calcium sulfate pellets dissolve by osmosis and can cause drainage 2) Ceftriaxone and vancomycin broad-spectrum antibiotic coverage are to be utilized initially. If no cultures result positive the patient would be sent home on ampicillin per my discussions with her infectious disease doctor. Plan for IV ampicillin 2gm Q6hr for 6 weeks. 3) A nutrition consult would be helpful in ensuring she has adequate nutrition to heal her wound. 4) Aspirin 81 twice per day for DVT prophylaxis 5) Multimodal pain regimen with no IV opioids ordered. Ice to the knee for additional pain control. Anticipate discharge home tomorrow w/ [facility] (IV ampicillin). Follow up at [facility] in 2 weeks for post-op appointment. Detailed postoperative instructions available at [email or web address]
--- NOTE | 2024-09-05 10:37 | PT-IP ANOTE ---
Pt refused to work with PT at this time, she would like to sleep.
--- NOTE | 2024-09-05 13:56 | OT.IPNOTE ---
Pt states too tired to do OT at this time and just wanting to rest, able to re-review OT equipment needs with pt.
--- NOTE | 2024-09-05 14:00 | PT-IP ANOTE ---
Pt reports having visitors coming and does not want to work with therapy at this time. PT may attempt to see later this afternoon if time is available.
--- NOTE | 2024-09-05 16:20 | CM.DPNOTE ---
DCP NOte CHEF ASSISTANT reviewed EMR. Per ortho note, cultures remain pending. CHEF ASSISTANT messaged ortho PA for updated plan, no response as of 1630. Per Jenny at [facility], talked to pt about cost of weekly infusion, pt in agreement with plan. Has nursing availability Sunday for SOC. need treatment plan when finalized. CHEF ASSISTANT met with pt and family in room. Confirm preference is home with [facility] and . Preference for HH is [facility]. CHEF ASSISTANT answered questions to best of ability. CHEF ASSISTANT spoke with Dayron from [facility], kindly agreed to review. CHEF ASSISTANT started f2f. Per previous PT note, pt will need rolling walker for home use day of discharge. P: anticipate home with [facility] for 6 weeks IV ampicillin, cultures pending, and Alpha , acceptance pending. CM team will continue to follow closely MAIRA Shannon
--- NOTE | 2024-09-05 16:49 | P.PN_ITS ---
Subjective Subjective Interval history: S: She was doing well today, she was somewhat sleepy. Her pain is well- controlled. No BM, poor appetite. No difficulties with breathing or pain. Exam Vital Signs (past 8 hours): - 09/05/24 09:00 Pulse Rate 83 Oxygen Delivery Method Room Air Oxygen Flow Rate 0 Narrative Exam Narrative: NAD, alert and oriented. Fluent speech. Lungs are clear, normal rate and effort. Heart is regular, no murmur gallop or rub. Abdomen is soft, non distended. Extremities are free of edema. Knee is wrapped. Objective Labs 09/04/24 05:25 09/04/24 05:25 Labs: Laboratory Results - last 24 hr 09/05/24 09/05/24 03:50 08:10 Vancomycin Peak 27.1 Vancomycin Trough 17.2 PFSH Medical History Biceps tendonosis of right shoulder Palpitations Asymptomatic PVD (peripheral vascular disease) Hypercholesteremia Dysthymic disorder Chronic pain Alcohol dependence, uncomplicated Panic attacks Anxiety GERD (gastroesophageal reflux disease) HTN (hypertension) Surgical History History of total right knee replacement (TKR) H/O tubal ligation H/O thumb surgery S/P left rotator cuff repair S/P right rotator cuff repair Social History marital status: unmarried,living together household members: significant other Smoking Status: Former smoker alcohol intake: former Assessment & Plan Assessment & Plan narrative: 1. Infected knee replacement status post explantation, present on admission and active. 2. Hypertension, present on admission and stable. 3. PVD, present on admission and stable. 4. GERD, present on admission and stable. 5. Acute blood loss anemia, present on admission and active. PLAN: She appears to be stable on chronic medications. Cultures are negative from the wound at 1 day. Her antibiotic plan is ampicillin for 6 weeks, with Infectious Disease at [facility]. Hospital Medicine will sign off, please reconsult if there is any additional needs. Time-Based Coding :: [TOTAL MINUTES] spent with patient and on the chart (including review of chart, obtaining history, exam, reviewing outside data, placing orders, documenting exam and treatment plan, and counseling patient) on [DATE].
[2024-09-05 20:00] VITALS: BP 117/64; PULSE 73; RESP 18; TEMP 36.9; O2SAT 95
[2024-09-05] MEDS: cefTRIAXone 1,000 MG in SODIUM CHLORIDE 0.9% 100 ML 200 MG IV (21:33)
[2024-09-05] MEDS: VANCOMYCIN 1,000 MG in DEXTROSE 5% IN WATER 250 ML 250 MG IV (22:13)
[2024-09-06] MEDS: PANTOPRAZOLE DR 20 MG TABLET PO (06:03)
[2024-09-06 06:50] LABS: Hematocrit 23.9 % (36-46); Hemoglobin 8.2 g/dL (12.0-16.0)
[2024-09-06] MEDS: ACETAMINOPHEN 325 MG TABLET 650 MG PO ×3 (07:53→20:08)
[2024-09-06] MEDS: VANCOMYCIN 1,000 MG in DEXTROSE 5% IN WATER 250 ML 250 MG IV ×3 (07:53→22:06)
[2024-09-06 07:54] VITALS: BP 148/69; PULSE 89
[2024-09-06] MEDS: DULOXETINE 30 MG CAPSULE PO (07:54)
[2024-09-06] MEDS: METOPROLOL ER 50 MG TABLET PO (07:54)
[2024-09-06] MEDS: DOCUSATE 100 MG CAPSULE PO ×2 (07:54→20:08)
[2024-09-06] MEDS: ASPIRIN EC 81 MG TABLET PO ×2 (07:55→20:08)
[2024-09-06] MEDS: OXYCODONE IR 5 MG TABLET PO (07:55)
[2024-09-06] MEDS: IBUPROFEN 600 MG TABLET PO ×3 (07:55→20:09)
[2024-09-06 08:00] VITALS: BP 148/69; PULSE 89; RESP 17; TEMP 37; O2SAT 98
--- NOTE | 2024-09-06 09:15 | PT.IPTN ---
Current Diagnoses Broken internal right knee prosthesis, initial encounter (09/03/24) Surgery Performed Operation Date: 09/03/24 13:30 Actual Procedures p Total Knee Arthroplasty Revision(Right) - Virgilio Bolden MD Physical Therapy Treatment Note M2 PT-IP Current Condition Start: 09/04/24 07:21 Freq: NEEDED Status: Active Protocol: Document 09/04/24 09:55 MB (Rec: 09/04/24 10:36 MB [id number]) Physical Therapy Current Condition Current Condition Evaluation Date 09/04/24 Treatment Diagnosis R total knee revision, knee immobilizer, TDWB RLE M3 PT-IP Subjective Start: 09/04/24 07:21 Freq: NEEDED Status: Active Protocol: Document 09/06/24 10:26 TS (Rec: 09/06/24 10:34 TS [id number]) Subjective Physical Therapy Visit Type Type Treatment Note Visit Start Time 09:15 Visit Stop Time 09:35 Number of FISHING ACCESSORIES MAKER Visits 1 Physical Therapy Visit Comments Patient Comments Pt reports pain is 3/10, she is agreeable to PT. Therapy Pain Assessment Pain When Pain Assessed During Mobility Pain Present Pain Present Pain Reported Location right knee Intensity 3 Scale Used Numeric (0 - 10) Description With Movement M4 PT-IP Mobility and Gait Start: 09/04/24 07:21 Freq: NEEDED Status: Active Protocol: Document 09/06/24 10:26 TS (Rec: 09/06/24 10:34 TS [id number]) PT-Bed Mobility Assessment Supine to Sit Supine to Sit Independent Sit to Supine Sit to Supine Independent Scooting Scooting to Edge of Bed Independent PT-Transfer Assessment Sit to and From Stand Sit to and from Stand Contact Guard Assistance Equipment Transfer Assistive Device Gait Belt,Front Wheeled Walker Orthotic/Prosthetic Devices or Brace: Yes Comments Mobility Comments Pt dons knee immobilizer prior to mobility. Supine to sit ind. STS with FWW CGA, pt demonstrates TTWB. She ambulates TTWB with FWW ~40' CGA/SBA. Pt sat in w/c, was brought to stairs. She performs stairs x3 with B handrail assist CGA with cues for sequencing. Pt was brought back to room with w/c, sit to supine into bed Ind. Pt was left with nursing, all needs met. Gait Assessment Gait Gait Assistance Required: Standby Assistance,Contact Guard Assist,1 Person Assist Distance (Feet) 40 Able to Maintain Weight Bearing Status Yes During Gait Assistive Devices Assistive Device Gait Belt,Front Wheeled Walker Orthotic/Prosthetic Devices or Brace: Yes Gait Deviations General Gait Pattern Antalgic,Decreased Stride Length,Decreased Feet Clearance,Flexed Trunk,Step-to Gait Factors Limiting Gait Function Factors Limiting Gait Function Decreased Activity Tolerance, Decreased Strength, Incoordination,Limited Range of Motion,Pain,Poor Balance, Poor Safety Awareness Stair Climbing Assessment Evaluation Level of Assist On Stairs Contact Guard Assistance,1 Person Assistance Devices Stair Climbing Assistive Devices Left Railing,Right Railing Technique/Endurance Stair Climbing Direction Ascend and Descend Stair Climbing Technique Step to Step Number of Steps Climbed 3 PT-Balance Assessment Sitting Balance and Reactions Static Sitting Balance Ability Good Dynamic Sitting Balance Ability Good Standing Balance and Reactions Static Standing Balance Ability Good Dynamic Standing Balance Ability Fair Device Used FWW M5 PT-IP Objective Assessments Start: 09/04/24 07:21 Freq: NEEDED Status: Active Protocol: Document 09/04/24 09:55 MB (Rec: 09/04/24 10:36 MB [id number]) Orientation Orientation/Cognition Level of Alertness Alert Language Function Ability No Deficits Noted Safety Awareness Decreased Safety Awareness Memory Description No Deficits Noted Gross Range of Motion Upper Extremity ROM Impairments Defer to OT Lower Extremity ROM Assessment Right Impaired Impairments R knee in immobilizer, ankle is functional and hip not tested d/t immobilizer/recent surgery Strength Lower Extremity Strength Assessment Right Impaired Hip R hip NT Knee R knee NT Ankle Right ankle DF and great toe extension 4+/5 Coordination Assessment Gross Coordination Gross Coordination Impaired Sensation Assessment Comments Sensation Comments No sensory testing RLE d/t immobilizer and dressing Muscle Tone Muscle Tone WNL Yes M6 PT-IP Treatment Start: 09/04/24 07:21 Freq: NEEDED Status: Active Protocol: Document 09/06/24 10:26 TS (Rec: 09/06/24 10:34 TS [id number]) Physical Therapy Treatment Education Education Provided Precautions,Weight Bearing Status,Safety M7 PT-IP Assessment and Plan Start: 09/04/24 07:21 Freq: NEEDED Status: Active Protocol: Document 09/06/24 10:26 TS (Rec: 09/06/24 10:34 TS [id number]) PT Summary Assessment and Plan Potential Rehabilitation Potential Good Summary Impairments Pain,ROM,Strength,Balance, Coordination,Bed Mobility, Transfers,Gait,Activity Tolerance Progress Towards Goals Progressing Toward Goals Assessment Summary Terrie continues to do well with her mobility. She is aware and performs TTWB with mobility. She progressed her gait to ~40'SBA/CGA with FWW. She progressed to stairs with use of B handrails. PT is recommending home with assist. Goals Bed Mobility Goal Independent Transfer Goal Independent,Front Wheeled Walker Gait Goal Independent,Front Wheel Walker Gait Distance 75 Other Goals Pt will ascend and descend 4 steps with two rails and no more than CGA to allow safe home entry. Pt will ascend and descend 1 platform step with RW and no more than CGA to allow safe home mobility inside house. Days to Meet Goals 5 Frequency of Treatment Frequency Of Treatment Twice a Day Treatment Plan Physical Therapy Treatment Plan Bed Mobility Training,Transfer Training,Gait Training, Therapeutic Exercise,Balance Retraining,Post Op Education, Discharge Planning,Hot or Cold Pack,Neuromuscular Re-ed, Coordination Retraining,Manual Therapy Weight Bearing Status Weight Bearing Status Touch Down Weight Bearing Allowed Weight Bearing Amount (enter % RLE or #) (%) Recommendations To Nursing Amount of Assist Needed Standby Assistance Discharge Recommendations PT Discharge Recommendations Home with Assistance Other Discharge Recommendations Tub bench and BSC Equipment Needed for Home Before If d/c home, will need RW Discharge issue Transportation Needs at Discharge Private Vehicle
--- NOTE | 2024-09-06 10:08 | P.PN_ITS ---
Subjective Subjective Date Patient Seen: 09/06/24 Time Patient Seen: 10:08 Interval history: Knee pain is mild. Denies fever or chills. No nausea or vomiting. Exam Vital Signs (past 8 hours): - 09/06/24 07:54 09/06/24 08:00 Temperature 98.6 F Pulse Rate 89 89 Respiratory Rate 17 Blood Pressure 148/69 H 148/69 H Pulse Oximetry 98 Oxygen Delivery Method Room Air Oxygen Flow Rate 0 Narrative Exam Narrative: Pleasant 69-year-old female walking in room in no apparent distress. Right knee dressing is clean, dry and intact. Neurovascular status is intact bilateral lower extremities. Const General: cooperative and comfortable Nutritional Appearance: average body habitus Orientation: alert Objective Labs 09/06/24 06:10 09/04/24 05:25 Labs: Laboratory Results - last 24 hr 09/06/24 06:10 Hgb 8.2 L Hct 23.9 L PFSH Medical History Biceps tendonosis of right shoulder Palpitations Asymptomatic PVD (peripheral vascular disease) Hypercholesteremia Dysthymic disorder Chronic pain Alcohol dependence, uncomplicated Panic attacks Anxiety GERD (gastroesophageal reflux disease) HTN (hypertension) Surgical History History of total right knee replacement (TKR) H/O tubal ligation H/O thumb surgery S/P left rotator cuff repair S/P right rotator cuff repair Social History marital status: unmarried,living together household members: significant other Smoking Status: Former smoker alcohol intake: former Assessment & Plan Post-op Postoperative Procedures: Procedures Operation Date: 09/03/24 13:30 Actual Procedure Side Surgeon p Total Knee Arthroplasty Revision Right Virgilio Bolden MD Postoperative day: 3 Postoperative status narrative: Stable Postoperative plan narrative: PICC line has been placed, Per Dr Kaylan Ramírez @ [facility] ID, if cultures remain negative at discharge, IV ampicillin 2g q 6hr x 6 weeks. 'You can let [facility] know it is being approved by Dr Ramírez and they can forward labs to Dr. Ramírez Touch down weight-bearing operating extremity with knee immobilizer. Knee immobilizer is present for soft tissue rest only. Knee immobilizer can be removed while she is in bed and she can bend her knee slightly but the knee immobilizers intended to limit knee flexion to allow the wound to heal. A lidia incisional wound VAC was placed and should remain in place until follow up. The battery will after 1 week at which time the cord can be removed and it can be used as a normal dressing until the follow up appointment in our clinic Aspirin 81 mg b.i.d. for DVT prophylaxis Multimodal pain management Discharge home once cultures finalized
[2024-09-06] MEDS: OXYCODONE IR 10 MG TABLET PO ×3 (11:48→19:33)
[2024-09-06 12:00] VITALS: BP 137/67; PULSE 86; RESP 19; TEMP 37.2; O2SAT 97
--- NOTE | 2024-09-06 14:12 | CM.DPNOTE ---
DCP Note BOARDING MACHINE OPERATOR reviewed EMR. BOARDING MACHINE OPERATOR met with pt and spouse in room. Confirm plan to dc home with [facility] and [facility]. Spouse confirms he got a rolling walker for pt for home use. PEDRO Carmona called in verbal order to [facility]. BOARDING MACHINE OPERATOR coordinated with Ksenia ([phone]) at [facility]. Pt scheduled for 1430 in her home in [place] for SOC. After getting verbal order from Mathew, report no further needs at this time. BOARDING MACHINE OPERATOR updated pt and RN on SOC for [facility]. Pt in agreement with plan. BOARDING MACHINE OPERATOR completed f2f. P: dc home with spouse, [facility] for RN/PT/OT, and [facility] for 6 weeks iv abx. home by 1400 for [facility] nursing SOC. CM team will continue to follow closely. MAIRA Shannon
--- NOTE | 2024-09-06 14:58 | PT-IP ANOTE ---
Pt has been up moving this afternoon she reports. Pt was left to rest in bed. PT will check on pt tomorrow.
[2024-09-06 16:00] VITALS: BP 133/69; PULSE 74; RESP 18; TEMP 37.4; O2SAT 96
[2024-09-06 20:00] VITALS: BP 141/75; PULSE 82; RESP 19; TEMP 37.2; O2SAT 97
[2024-09-06] MEDS: GABAPENTIN 300 MG CAPSULE PO (20:09)
[2024-09-06] MEDS: cefTRIAXone 1,000 MG in SODIUM CHLORIDE 0.9% 100 ML 200 MG IV (21:24)
[2024-09-07] MEDS: OXYCODONE IR 10 MG TABLET PO ×3 (05:03→11:45)
[2024-09-07] MEDS: PANTOPRAZOLE DR 20 MG TABLET PO (05:08)
[2024-09-07] MEDS: DOCUSATE 100 MG CAPSULE PO (07:50)
[2024-09-07] MEDS: VANCOMYCIN 1,000 MG in DEXTROSE 5% IN WATER 250 ML 250 MG IV (07:50)
[2024-09-07] MEDS: ASPIRIN EC 81 MG TABLET PO (07:50)
[2024-09-07] MEDS: ACETAMINOPHEN 325 MG TABLET 650 MG PO (07:50)
[2024-09-07 07:51] VITALS: BP 146/75; PULSE 81
[2024-09-07] MEDS: DULOXETINE 30 MG CAPSULE PO (07:51)
[2024-09-07] MEDS: METOPROLOL ER 50 MG TABLET PO (07:51)
[2024-09-07 08:00] VITALS: BP 146/75; PULSE 92; RESP 16; TEMP 38.2; O2SAT 100
[2024-09-07] MEDS: IBUPROFEN 600 MG TABLET PO (09:52)
--- NOTE | 2024-09-07 10:11 | PM.DS.1 ---
History of Present Illness History of Present Illness Date Patient Seen: 09/07/24 Time Patient Seen: 08:30 Date of Onset of Symptoms: 09/03/24 Chief complaint: INPT Narrative: Patient is status post a right total knee replacement. Surgery was done on the . Multiple cultures were obtained to rule out signs of infection. Patient has had a uncomplicated hospital course. Discharge Providers Provider Date of admission: 09/03/24 11:15 Discharge Date: 09/07/24 Primary care physician: ITA Alberto Consults: 09/03/24 06:00 Consult to Anesthesiology Routine Comment: Consulting Provider: Anesthesiologist Reason for consultation: Regional block for post operative pain control 09/03/24 20:22 Consult to Discharge Planning Routine Comment: Consult to Occupational Therapy Evaluate & Treat Comment: Physician Instructions: Evaluate and treat Consult to Physical Therapy Evaluate & Treat Comment: Physician Instructions: postop TKA protocol 09/04/24 07:11 Consult to Dietitian, Adult Routine Comment: optimize calorie and protein intake for Reason For Exam: wound healing Discharge provider: Remigio Russo MD Summary Hospital Course Discharge Diagnosis: Status post right total knee arthroplasty. Hospital Course: Patient underwent physical therapy as well as pain control as well as IV antibiotics. Status at Discharge Cognitive/behavioral status at discharge: oriented Functional status at discharge: independent ambulation Overall status at discharge: patient is back to baseline Time Spent with Patient Time spent: Less than 30 minutes Exam Vital Signs (past 8 hours): - 09/07/24 07:51 09/07/24 08:00 Temperature 100.8 F H Pulse Rate 81 92 H Respiratory Rate 16 Blood Pressure 146/75 H 146/75 H Pulse Oximetry 100 Oxygen Flow Rate 0 Oxygen Delivery Method Room Air Oxygen Flow Rate 0 Narrative Exam Narrative: Patient's dressing is clean and dry and intact. Positive dorsiflexion plantar flexion of the toes and ankle. Palpable pedal pulses. Nontender to palpation over the posterior aspect of the calf. Objective Labs 09/06/24 06:10 09/04/24 05:25 [facility] Medical History Biceps tendonosis of right shoulder Palpitations Asymptomatic PVD (peripheral vascular disease) Hypercholesteremia Dysthymic disorder Chronic pain Alcohol dependence, uncomplicated Panic attacks Anxiety GERD (gastroesophageal reflux disease) HTN (hypertension) Surgical History History of total right knee replacement (TKR) H/O tubal ligation H/O thumb surgery S/P left rotator cuff repair S/P right rotator cuff repair Social History marital status: unmarried,living together household members: significant other Smoking Status: Former smoker alcohol intake: former Discharge Assessment & Plan Assessment and Plan Assessment: Patient doing well status post right total knee arthroplasty. Plan of Treatment: Patient will be discharged home today. Patient will be getting IV antibiotics through [facility]. Discharge Plan Discharge Plan Patient Disposition: Home Discharge orders & Medications Prescriptions: New oxycodone 5 mg Tablet 5 mg PO Q3H PRN (Reason: Pain, Moderate (4-6)) Qty: 60 0RF Continued losartan 50 mg Tablet 50 mg PO BID metoprolol succinate 50 mg Tablet Extended Release 24 Hr 50 mg PO DAILY amlodipine 5 mg Tablet 5 mg PO BID lorazepam 1 mg Tablet 1 mg PO DAILY PRN (Reason: Anxiety) ondansetron 4 mg Tablet,Disintegrating 4 mg PO Q8H PRN (Reason: Nausea) fluticasone propionate 50 mcg/actuation [place],Suspension 1 - 2 spray INTRANASAL DAILY PRN (Reason: allergies) Rx Instructions: administer into each nostril duloxetine 30 mg Capsule,Delayed Release(Dr/Ec) 30 mg PO DAILY naltrexone 50 mg Tablet 25 mg PO BEDTIME gabapentin 300 mg Capsule 300 mg PO TID PRN (Reason: Pain (Scale Score 4-6)) omeprazole 20 mg Capsule,Delayed Release(Dr/Ec) 20 mg PO DAILY acetaminophen [Tylenol] 325 mg Tablet 325 mg PO DAILY PRN (Reason: Pain (Scale Score 4-6)) ibuprofen 200 mg Tablet 200 mg PO DAILY Follow up/Referrals: Corie Sin TRANSFORMER [employer]OP SUPERVISOR [Primary Care Provider] - Diet/Activity/Treatments Diet: Diet as Tolerated Activity: Patient can weight-bearing as tolerated Skin/Wound/Dressing Care Report to your healthcare provider any signs of infection, such as:: chills, fever, night sweats, increased pain, unusual drainage and unusual redness Dressing: Keep dressing clean and dry Visit Report/Discharge Packet Instructions: DI for Knee Replacement Stand Alone Forms: Patient Portal/API, Stroke Signs & Symptoms, Surgery Discharge Discharge Data Primary Care Provider: Corie Sin
[2024-09-07] MEDS: AMPICILLIN 2,000 MG in SODIUM CHLORIDE 0.9% 100 ML 200 MG IV (10:52)
[2024-09-07] MEDS: ONDANSETRON 4 MG ODT PO (10:57)
--- NOTE | 2024-09-07 12:06 | CM.DPNOTE ---
DCP Note BEAD FILLER reviewed EMR. Per Dr. Russo, cleared to dc today. ordered [facility] to manage home antibiotics at [facility]. Pharmacist in morning rounds pointed out that pt likely will need to have dose of IV abx here prior to dc to make sure she can tolerate it. Dr. Andersen kindly agreed to place order of first dose for pt to have here. Per nursing staff, pt tolerated well. BEAD FILLER spoke with answering services at [facility]. Report they just need dc sum for pt and they are all set to start care at 1430 in the home. Pt ended last dose of ampicillin at 1100 today. BEAD FILLER faxed signed dc sum to [facility]. BEAD FILLER placed HH order and faxed f2f and HH order and dc sum to [facility] . BEAD FILLER attempted to meet with pt in room. Pt left with spouse prior to meeting with this BEAD FILLER. P: home today with [facility] , [facility], and spouse support. CM team will continue to follow as needed MAIRA Shannon
--- NOTE | 2024-09-07 12:42 | PC.NURSE ---
Patient was given first dose of Ampicillin 2gr per recommendation of IV solutions. Patient tolerated new tx well, with no complications. Patient req. pain medication before d/c. Paperwork for d/c reviewed with patient at bedside. Patient was able to give self a bed bath and dress herself upon her req. IV was removed but PICC line in LUE was left intact for nursing home home IV therapy. Patient left in stable condition, VSS, drg. CDI, enoch wrap on, TANYA drg suctioned and working, immobilizer on RLE. Pt states weight bearing precautions. Printed copy of pain medication rx was given to spouse at bedside. Belongings were gather by spouse. Patient escorted to private vehicle via WC by STEAM PLANT OPERATOR on staff.
== END 2024-09-07 11:45 | disposition home health service (06) | DRG 467 ==
PROVIDERS: Physician Assistant Medical; Admitting Provider Orthopaedic Surgery Adult Reconstructive Orthopaedic Surgery; PCP Nurse Practitioner; Referring Provider Orthopaedic Surgery Adult Reconstructive Orthopaedic Surgery; Visit Provider Orthopaedic Surgery Adult Reconstructive Orthopaedic Surgery
PROC: 0SRC0EZ Replacement of Right Knee Joint with Articulating Spacer, Open Approach (ICD-10-PCS; principal; 2024-09-03 13:30)
DX: T84.53XA Infection and inflammatory reaction due to internal right knee prosthesis, initial encounter (principal); D62 Acute posthemorrhagic anemia; M86.8X6 Other osteomyelitis, lower leg; I73.9 Peripheral vascular disease, unspecified; I10 Essential (primary) hypertension; K21.9 Gastro-esophageal reflux disease without esophagitis; F41.9 Anxiety disorder, unspecified; Z87.891 Personal history of nicotine dependence
CPT/HCPCS: 36415; 36430; 36569; 73560; 80202; 82565; 85014; 85018; 86850; 86900; 86901; 87070; 87075; 87176; 87205; 87801; 97161; 97165; 97530; 97535; C1776; P9016; J0290; J0690; J0696; J1100; J1171; J1642; J2405; J2704; J3410; P9045